=== PATIENT | male | born 1935 | race Caucasian/White ===

== ENCOUNTER 2022-02-11 08:45 | Day surgery (SDC) | payer OTHER ==
[~2022-02-11] VITALS: Ht 172.7 cm; Wt 63.8 kg
[~2022-02-11 08:45] MED LIST: AMLO5 PO; ATEN25 PO; FINA5 PO; GABA300 PO; ZESTORETIC 20-1 EAC3 PO
[2022-02-11] MEDS ORDERED: IBUP400 PO (09:43)
--- NOTE | 2022-02-11 09:50 | NUR ---
02/11/22 0950 Erich Wynn CALL LIGHT WITHIN REACH. TETRACAINE AT 0946 AND PLEDGETT AT 0950 IN THE RIGHT EYE.
== END 2022-02-11 11:30 | disposition home or self-care (01) ==
LOC: ORSCSDS 08:45
PROVIDERS: Ophthalmology
PROC: 08RJ3JZ Replacement of Right Lens with Synthetic Substitute, Percutaneous Approach (ICD-10-PCS; principal; 2022-02-11 10:30)
DX: H25.11 Age-related nuclear cataract, right eye (principal); I10 Essential (primary) hypertension; Z79.899 Other long term (current) drug therapy
CPT/HCPCS: J2250; J3010; J3301; J7040; V2632

== ENCOUNTER 2022-09-23 21:19 | Emergency (ER) | payer OTHER ==
[~2022-09-23] VITALS: Ht 172.7 cm; Wt 61.7 kg
[~2022-09-23 21:19] MED LIST changes: +IBUP400 PO; +ZESTORETIC 20-1 EAC3; -ZESTORETIC 20-1 EAC3 PO
[2022-09-23] MEDS ORDERED: Dilaudid 2 mg Ta2 MG (22:48)
[2022-09-23] MEDS ORDERED: OMEP20ER PO (22:49)
== END 2022-09-23 23:12 | disposition home or self-care (01) ==
LOC: ER 21:19
DX: Z43.1 Encounter for attention to gastrostomy (principal); I10 Essential (primary) hypertension; Z88.0 Allergy status to penicillin; Z79.899 Other long term (current) drug therapy; Z87.891 Personal history of nicotine dependence
CPT/HCPCS: 99282